=== PATIENT | male | born 1955 | race Caucasian/White ===

== ENCOUNTER 2017-12-16 18:12 | Inpatient (IN) | payer MEDICARE, OTHER ==
[~2017-12-16] VITALS: Ht 180.3 cm; Wt 104.0 kg
[~2017-12-16 18:12] MED LIST: AMLO10TA4 PO; ASPI-1265 PO; ATOR20TA66 PO; LISI-604 PO; etomidate 2mg/ml inj. ONE; rocuronium 10mg/ml inj IV ONE; sodium chloride 0.9% 10ml vial - diluent IJ ONE
[2017-12-16] MEDS ORDERED: normal saline 1000ML IV soln IVB ONE ×2 (18:40→20:25)
[2017-12-16 18:48] LABS: BASOPHILS % (AUTO) 0 % (0-1); EOSINOPHILS % (AUTO) 0 % (0-6); HEMATOCRIT 53.1 % (42.0-52.0); HEMOGLOBIN 17.9 g/dl (14.0-17.9); LYMPHOCYTES % (AUTO) 4.3 % (21-51); MEAN CORPUSCULAR HEMOGLOBIN 29.1 PG (27.0-31.0); MEAN CORPUSCULAR HGB CONC 33.6 % (33.0-36.5); MEAN CORPUSCULAR VOLUME 86.7 FL (78-98); MEAN PLATELET VOLUME 8.1 FL (7.4-10.4); MONOCYTES # (AUTO) 0.5 X10'3 (0-0.9); MONOCYTES % (AUTO) 2.2 % (2-12); NEUTROPHILS # (AUTO) 21.1 X10'3 (1.8-7.7); NEUTROPHILS % (AUTO) 93.5 % (42-75); PLATELET COUNT 340 X10'3 (140-440); RED BLOOD COUNT 6.13 X10'6 (4.70-6.10); WHITE BLOOD COUNT 22.5 X10'3 (4.5-11.0)
[2017-12-16] MEDS ORDERED: CefTRIAXone 2gm/D5W 50ml 50 ML IV ONE (18:50)
[2017-12-16] MEDS ORDERED: CefTRIAXone inj 2,000 MG in normal saline 100ml IV soln 100 ML IV ONE (18:55)
[2017-12-16 19:00] LABS: INR 1.1 INR; PARTIAL THROMBOPLASTIN TIME 31 SECONDS (22-32)
[2017-12-16 19:13] LABS: ALANINE AMINOTRANSFERASE 25 U/L (12-78); ALBUMIN 3.4 G/DL (3.4-5.0); ALBUMIN/GLOBULIN RATIO 0.7 (1.1-1.5); ALKALINE PHOSPHATASE 152 IU/L (46-116); ANION GAP 20 (8-16); ASPARTATE AMINO TRANSFERASE 19 U/L (10-37); BILIRUBIN,TOTAL 0.6 MG/DL (0.1-1.0); BLOOD UREA NITROGEN 13 MG/DL (7-18); BUN/CREATININE RATIO 8.7 (5.4-32.0); CHLORIDE 92 MMOL/L (99-107); CREATININE 1.49 MG/DL (0.60-1.10); ETHANOL < 0.010 GM/DL (0.0-0.010); MAGNESIUM 2.2 MG/DL (1.5-2.4); PHOSPHORUS 5.9 MG/DL (2.3-4.5); POTASSIUM 3.8 MMOL/L (3.5-5.1); SODIUM 132 MMOL/L (135-145); TOTAL CARBON DIOXIDE 20.3 MMOL/L (24-32); TOTAL PROTEIN 8.6 G/DL (6.4-8.2); eGFR 47 ML/MIN
[2017-12-16 19:18] LABS: GLUCOSE 302 MG/DL (70-104)
[2017-12-16 19:25] LABS: CLARITY,URINE CLOUDY (Clear); COLOR,URINE YELLOW (Yellow); GLUCOSE, URINE 100 mg/dl (Neg); KETONES,URINE NEGATIVE (Neg); LEUKOCYTE ESTERASE ,URINE NEGATIVE (Neg); NITRITES, URINE NEGATIVE (Neg); OCCULT BLOOD,URINE MODERATE (Neg); PH,URINE 6.5 (4.8-8.0); PROTEIN,URINE >=300 mg/dl (Neg)
[2017-12-16 19:32] LABS: URINE AMPHETAMINE SCREEN NEGATIVE (Neg); URINE BARBITUATE SCREEN NEGATIVE (Neg); URINE BENZODIAZEPINES SCREEN NEGATIVE (Neg); URINE CANNABINOID SCREEN NEGATIVE (Neg); URINE COCAINE SCREEN NEGATIVE (Neg); URINE METHADONE SCREEN NEGATIVE (Neg); URINE OPIATE SCREEN NEGATIVE (Neg); URINE PHENCYCLIDINE SCREEN NEGATIVE (Neg)
[2017-12-16 19:36] LABS: UA COLLECTION TYPE FOLEY CATH
[2017-12-16 19:38] LABS: BACTERIA,URINE FEW /HPF (Neg); SPERM MANY /HPF (NEGATIVE); SQUAMOUS EPITHELIAL CELL,UR FEW /LPF (FEW); WBC,URINE 0-4 /HPF (0-4)
[2017-12-16] MEDS ORDERED: LORazepam 2 mg/ml vial IV ONE ×2 (20:10→22:20)
[2017-12-16 20:48] LABS: TOTAL CELLS COUNTED 100
[2017-12-16 20:49] LABS: PLATELET ESTIMATE NORMAL
[2017-12-16] MEDS ORDERED: FURO-150 PO (21:15)
[2017-12-16] MEDS ORDERED: LORazepam 2 mg/ml vial ONE (22:21)
[2017-12-16] MEDS ORDERED: magnesium hydroxide 30ml (MOM) UD suspension PO PRN (22:25)
[2017-12-16] MEDS ORDERED: potassium Cl 40MEQ/NS 500ml 500 ML IV PRN (22:25)
[2017-12-16] MEDS ORDERED: potassium Cl 20 mEq SR tablet PO PRN ×2 (22:25)
[2017-12-16] MEDS ORDERED: acetaminophen 325mg tablet PO PRN ×2 (22:25)
[2017-12-16] MEDS ORDERED: morphine 4 MG/ML inj SYRINge IV PRN ×2 (22:25)
[2017-12-16] MEDS ORDERED: ondansetron/PF 4mg/2ml inj IV PRN (22:25)
[2017-12-16] MEDS ORDERED: levetiracetam inj 1,500 MG in normal saline 100ml IV soln 100 ML IV ONE (22:30)
[2017-12-16] MEDS ORDERED: vancomycin/NS 1 GM ADD-VANTAGE 250 ML IV ONE (22:35)
[2017-12-16] MEDS ORDERED: levetiracetam 100mg/ml inj IV ONE (22:37)
[2017-12-16] MEDS ORDERED: NORMAL SALINE ONE (22:38)
[2017-12-16] MEDS: normal saline 1000ml 1,000 ML IV SCH (22:51)
[2017-12-16] MEDS: piperacillin/tazo 3.375gm/50ml 50 ML IV SCH (23:06)
[2017-12-16] MEDS: K, MAG and/or Phos replacement - Verify level? MC SCH (23:08)
[2017-12-17] VITALS (23 sets, daily range): BP systolic 81–172; BP diastolic 49–92
[2017-12-17 00:46] LABS: ABG HCO3 23.5 mmol/L (22.0-26.0); ABG OXYGEN SATURATION 86.1 % (95-98); ABG PCO2 (T) 72.7 mmHg (35.0-48.0); ABG PH (T) 7.135 (7.350-7.450); ABG PO2 (T) 67.6 mmHg (83-108); ALLEN'S TEST Positive; FCOHb 0.3 % (0.5-1.5); FMetHb 0.4 % (0.3-1.12); FO2Hb 85.5 % (94-100); MINUTE VOLUME 9 L/min; PATIENT TEMPERATURE 38.2; PEEP 5 cm H2O; RESPIRATORY RATE 18 b/min; RESPIRATORY RATE (OBSERVED) 21 b/min; TIDAL VOLUME 400 mL; TOTAL HEMOGLOBIN 16.7 G/dl (14.0-18.0)
[2017-12-17] MEDS: FENTANYL-0.9 % NACL/PF 100 ML IV PRN (02:08)
[2017-12-17 03:16] LABS: ABG BASE EXCESS -4.5 mmol/L (-2.0-3.0); ABG HCO3 21.7 mmol/L (22.0-26.0); ABG OXYGEN SATURATION 95.5 % (95-98); ABG PCO2 (T) 48.2 mmHg (35.0-48.0); ABG PH (T) 7.281 (7.350-7.450); ABG PO2 (T) 93.7 mmHg (83-108); ALLEN'S TEST Positive; FCOHb 0.1 % (0.5-1.5); FMetHb 0.2 % (0.3-1.12); FO2Hb 95.2 % (94-100); MINUTE VOLUME 11 L/min; PEEP 5 cm H2O; RESPIRATORY RATE 18 b/min; RESPIRATORY RATE (OBSERVED) 18 b/min; TIDAL VOLUME 550 mL; TOTAL HEMOGLOBIN 15.3 G/dl (14.0-18.0)
[2017-12-17 03:29] LABS: BASOPHILS # (AUTO) 0.1 X10'3 (0-0.2); BASOPHILS % (AUTO) 0.3 % (0-1); EOSINOPHILS % (AUTO) 0 % (0-6); HEMATOCRIT 48.5 % (42.0-52.0); HEMOGLOBIN 16.2 g/dl (14.0-17.9); LYMPHOCYTES # (AUTO) 0.3 X10'3 (1.1-4.8); LYMPHOCYTES % (AUTO) 1.7 % (21-51); MEAN CORPUSCULAR HEMOGLOBIN 29.3 PG (27.0-31.0); MEAN CORPUSCULAR HGB CONC 33.5 % (33.0-36.5); MEAN CORPUSCULAR VOLUME 87.3 FL (78-98); MONOCYTES # (AUTO) 0.8 X10'3 (0-0.9); MONOCYTES % (AUTO) 4.1 % (2-12); NEUTROPHILS # (AUTO) 18.2 X10'3 (1.8-7.7); NEUTROPHILS % (AUTO) 93.9 % (42-75); PLATELET COUNT 283 X10'3 (140-440); RED BLOOD COUNT 5.55 X10'6 (4.70-6.10); WHITE BLOOD COUNT 19.4 X10'3 (4.5-11.0)
[2017-12-17 03:52] LABS: ALANINE AMINOTRANSFERASE 18 U/L (12-78); ALBUMIN 2.8 G/DL (3.4-5.0); ALBUMIN/GLOBULIN RATIO 0.6 (1.1-1.5); ALKALINE PHOSPHATASE 121 IU/L (46-116); ANION GAP 11 (8-16); ASPARTATE AMINO TRANSFERASE 23 U/L (10-37); BILIRUBIN,TOTAL 0.5 MG/DL (0.1-1.0); BLOOD UREA NITROGEN 11 MG/DL (7-18); BUN/CREATININE RATIO 8.3 (5.4-32.0); CHLORIDE 101 MMOL/L (99-107); CREATININE 1.32 MG/DL (0.60-1.10); POTASSIUM 4.3 MMOL/L (3.5-5.1); SODIUM 137 MMOL/L (135-145); TOTAL CARBON DIOXIDE 25.4 MMOL/L (24-32); TOTAL PROTEIN 7.2 G/DL (6.4-8.2); eGFR 55 ML/MIN
[2017-12-17 03:58] LABS: GLUCOSE 112 MG/DL (70-104)
[2017-12-17 04:48] LABS: PLATELET ESTIMATE NORMAL; TOTAL CELLS COUNTED 100
[2017-12-17] MEDS: piperacillin/tazo 3.375gm/50ml 50 ML IV SCH ×4 (05:49→22:54)
[2017-12-17] MEDS ORDERED: levetiracetam inj 1,500 MG in normal saline 100ml IV soln 85 ML IV SCH (08:00)
[2017-12-17] MEDS ORDERED: propofol 1000mg/100ml bottle 100 ML IV PRN (09:13)
[2017-12-17] MEDS: K, MAG and/or Phos replacement - Verify level? MC SCH (09:14)
[2017-12-17] MEDS: enoxaparin 40mg/0.4ml syringe SUBCUT SCH (09:18)
[2017-12-17] MEDS: pantoprazole 40 MG vial IV SCH (09:18)
[2017-12-17] MEDS: levetiracetam inj 1,500 MG in normal saline 100ml IV soln 85 ML IV SCH ×2 (09:18→20:20)
[2017-12-17] MEDS: lactobacillus rhamnosus 10,000 MMU CELLS/CAPSULE PO SCH ×2 (09:18→20:20)
[2017-12-17] MEDS: vancomycin/NS 1 GM ADD-VANTAGE 250 ML IV SCH ×3 (12:02→23:32)
[2017-12-17] MEDS: normal saline 1000ml 1,000 ML IV SCH (12:05)
[2017-12-17] MEDS ORDERED: midazolam 100mg in NS 100ml 100 ML IV PRN (13:57)
[2017-12-17] MEDS: midazolam 100mg in NS 100ml 100 ML IV PRN (14:34)
[2017-12-17] MEDS ORDERED: ziprasidone IM 20mg inj **IM only IM ONE (17:25)
[2017-12-17] MEDS ORDERED: NORepinephrine 8mg/ 250ml NS 250 ML IV ONE (19:54)
[2017-12-17] MEDS: NORepinephrine 8mg/ 250ml NS 250 ML IV SCH (20:12)
[2017-12-18] VITALS (23 sets, daily range): BP systolic 112–202; BP diastolic 58–108
[2017-12-18] MEDS: normal saline 1000ml 1,000 ML IV SCH ×2 (01:14→01:28)
[2017-12-18] MEDS: mineral oil/petrolatum ophthal oint EACHEYE SCH ×4 (01:31→19:50)
[2017-12-18 03:15] LABS: ABG BASE EXCESS -3.9 mmol/L (-2.0-3.0); ABG HCO3 19.7 mmol/L (22.0-26.0); ABG OXYGEN SATURATION 97.2 % (95-98); ABG PCO2 (T) 31.5 mmHg (35.0-48.0); ABG PH (T) 7.414 (7.350-7.450); ABG PO2 (T) 89.8 mmHg (83-108); ALLEN'S TEST Positive; FO2Hb 97.2 % (94-100); MINUTE VOLUME 12 L/min; PEEP 5 cm H2O; RESPIRATORY RATE 20 b/min; RESPIRATORY RATE (OBSERVED) 20 b/min; TIDAL VOLUME 550 mL; TOTAL HEMOGLOBIN 13.1 G/dl (14.0-18.0)
[2017-12-18 03:35] LABS: BASOPHILS # (AUTO) 0.1 X10'3 (0-0.2); EOSINOPHILS # (AUTO) 0.2 X10'3 (0-0.9); EOSINOPHILS % (AUTO) 1.2 % (0-6); HEMATOCRIT 35.4 % (42.0-52.0); HEMOGLOBIN 11.8 g/dl (14.0-17.9); LYMPHOCYTES # (AUTO) 1.1 X10'3 (1.1-4.8); LYMPHOCYTES % (AUTO) 7.4 % (21-51); MEAN CORPUSCULAR HEMOGLOBIN 29.2 PG (27.0-31.0); MEAN CORPUSCULAR HGB CONC 33.3 % (33.0-36.5); MEAN CORPUSCULAR VOLUME 87.8 FL (78-98); MEAN PLATELET VOLUME 9.2 FL (7.4-10.4); MONOCYTES # (AUTO) 1.1 X10'3 (0-0.9); MONOCYTES % (AUTO) 7.1 % (2-12); NEUTROPHILS % (AUTO) 83.3 % (42-75); PLATELET COUNT 240 X10'3 (140-440); RED BLOOD COUNT 4.03 X10'6 (4.70-6.10); RED CELL DISTRIBUTION WIDTH 15.5 % (11.5-14.5); WHITE BLOOD COUNT 15.6 X10'3 (4.5-11.0)
[2017-12-18 03:53] LABS: ALANINE AMINOTRANSFERASE 16 U/L (12-78); ALBUMIN 2.1 G/DL (3.4-5.0); ALBUMIN/GLOBULIN RATIO 0.6 (1.1-1.5); ALKALINE PHOSPHATASE 67 IU/L (46-116); ANION GAP 10 (8-16); ASPARTATE AMINO TRANSFERASE 16 U/L (10-37); BILIRUBIN,TOTAL 0.5 MG/DL (0.1-1.0); BLOOD UREA NITROGEN 14 MG/DL (7-18); BUN/CREATININE RATIO 10.1 (5.4-32.0); CALCIUM 7.7 MG/DL (8.5-10.1); CHLORIDE 109 MMOL/L (99-107); CREATININE 1.38 MG/DL (0.60-1.10); POTASSIUM 3.5 MMOL/L (3.5-5.1); SODIUM 141 MMOL/L (135-145); TOTAL CARBON DIOXIDE 21.6 MMOL/L (24-32); TOTAL PROTEIN 5.5 G/DL (6.4-8.2); eGFR 52 ML/MIN
[2017-12-18 03:56] LABS: GLUCOSE 90 MG/DL (70-104)
[2017-12-18] MEDS: piperacillin/tazo 3.375gm/50ml 50 ML IV SCH ×2 (04:40→11:00)
[2017-12-18] MEDS: enoxaparin 40mg/0.4ml syringe SUBCUT SCH (08:06)
[2017-12-18] MEDS: lactobacillus rhamnosus 10,000 MMU CELLS/CAPSULE PO SCH ×2 (08:06→19:33)
[2017-12-18] MEDS: pantoprazole 40 MG vial IV SCH (08:06)
[2017-12-18] MEDS: levetiracetam inj 1,500 MG in normal saline 100ml IV soln 85 ML IV SCH ×2 (08:06→19:34)
[2017-12-18] MEDS: K, MAG and/or Phos replacement - Verify level? MC SCH (08:07)
[2017-12-18] MEDS ORDERED: VANCOMYCIN LEVEL IV ONE (10:30)
[2017-12-18] MEDS: midazolam 100mg in NS 100ml 100 ML IV PRN ×2 (11:12→23:51)
[2017-12-18] MEDS: vancomycin/NS 1 GM ADD-VANTAGE 250 ML IV SCH ×2 (12:40→23:43)
[2017-12-18] MEDS: FENTANYL-0.9 % NACL/PF 100 ML IV PRN ×2 (15:10→23:52)
[2017-12-18] MEDS: furosemide 20 MG/2 ML vial IV SCH ×2 (15:56→23:47)
[2017-12-18] MEDS: hydrALAZINE 20mg/ml inj. IV PRN (19:19)
[2017-12-18] MEDS: lisinopril 5mg tablet PO SCH (19:33)
[2017-12-18] MEDS: amLODIPine 5mg tablet PO SCH (19:33)
[2017-12-18] MEDS: cefepime inj. 1 GM in dextrose 5%-water 50ml 50 ML IV SCH (19:34)
[2017-12-19] VITALS (24 sets, daily range): BP systolic 87–176; BP diastolic 51–98
[2017-12-19] MEDS: mineral oil/petrolatum ophthal oint EACHEYE SCH ×4 (02:17→19:38)
[2017-12-19 03:11] LABS: ABG HCO3 15.6 mmol/L (22.0-26.0); ABG OXYGEN SATURATION 92.6 % (95-98); ABG PCO2 (T) 28.3 mmHg (35.0-48.0); ABG PO2 (T) 68.2 mmHg (83-108); ALLEN'S TEST Positive; FCOHb 0.2 % (0.5-1.5); FMetHb 0.2 % (0.3-1.12); FO2Hb 92.2 % (94-100); MINUTE VOLUME 12 L/min; PATIENT TEMPERATURE 37.6; PEEP 5 cm H2O; RESPIRATORY RATE 20 b/min; RESPIRATORY RATE (OBSERVED) 20 b/min; TIDAL VOLUME 550 mL; TOTAL HEMOGLOBIN 15.2 G/dl (14.0-18.0)
[2017-12-19 03:19] LABS: BASOPHILS # (AUTO) 0.1 X10'3 (0-0.2); BASOPHILS % (AUTO) 0.3 % (0-1); EOSINOPHILS % (AUTO) 0.2 % (0-6); HEMATOCRIT 41.5 % (42.0-52.0); LYMPHOCYTES # (AUTO) 0.6 X10'3 (1.1-4.8); LYMPHOCYTES % (AUTO) 2.9 % (21-51); MEAN CORPUSCULAR HEMOGLOBIN 29.1 PG (27.0-31.0); MEAN CORPUSCULAR HGB CONC 33.8 % (33.0-36.5); MEAN CORPUSCULAR VOLUME 86.2 FL (78-98); MEAN PLATELET VOLUME 8.9 FL (7.4-10.4); MONOCYTES # (AUTO) 1.2 X10'3 (0-0.9); MONOCYTES % (AUTO) 5.8 % (2-12); NEUTROPHILS # (AUTO) 18.4 X10'3 (1.8-7.7); NEUTROPHILS % (AUTO) 90.8 % (42-75); PLATELET COUNT 277 X10'3 (140-440); RED BLOOD COUNT 4.82 X10'6 (4.70-6.10); RED CELL DISTRIBUTION WIDTH 15.4 % (11.5-14.5); WHITE BLOOD COUNT 20.3 X10'3 (4.5-11.0)
[2017-12-19 03:38] LABS: ALANINE AMINOTRANSFERASE 18 U/L (12-78); ALBUMIN 2.3 G/DL (3.4-5.0); ALBUMIN/GLOBULIN RATIO 0.5 (1.1-1.5); ALKALINE PHOSPHATASE 73 IU/L (46-116); ANION GAP 16 (8-16); ASPARTATE AMINO TRANSFERASE 23 U/L (10-37); BILIRUBIN,TOTAL 0.6 MG/DL (0.1-1.0); BLOOD UREA NITROGEN 17 MG/DL (7-18); BUN/CREATININE RATIO 8.6 (5.4-32.0); CALCIUM 8.1 MG/DL (8.5-10.1); CHLORIDE 107 MMOL/L (99-107); CREATININE 1.98 MG/DL (0.60-1.10); POTASSIUM 3.5 MMOL/L (3.5-5.1); SODIUM 141 MMOL/L (135-145); TOTAL CARBON DIOXIDE 17.6 MMOL/L (24-32); TOTAL PROTEIN 6.5 G/DL (6.4-8.2); eGFR 34 ML/MIN
[2017-12-19 03:45] LABS: GLUCOSE 64 MG/DL (70-104)
[2017-12-19] MEDS ORDERED: dextrose ORAL solution 15 GM/59 ML bottle PO PRN ×2 (03:55)
[2017-12-19] MEDS ORDERED: dextrose 50%-water 50ml dispensing syringe IV PRN ×2 (03:55)
[2017-12-19] MEDS: midazolam 100mg in NS 100ml 100 ML IV PRN (07:04)
[2017-12-19] MEDS: K, MAG and/or Phos replacement - Verify level? MC SCH (08:00)
[2017-12-19] MEDS: amLODIPine 5mg tablet PO SCH (08:23)
[2017-12-19] MEDS: lisinopril 5mg tablet PO SCH (08:23)
[2017-12-19] MEDS: lactobacillus rhamnosus 10,000 MMU CELLS/CAPSULE PO SCH ×2 (08:23→19:36)
[2017-12-19] MEDS: furosemide 20 MG/2 ML vial IV SCH ×2 (08:24→17:07)
[2017-12-19] MEDS: pantoprazole 40 MG vial IV SCH (08:24)
[2017-12-19] MEDS: levetiracetam inj 1,500 MG in normal saline 100ml IV soln 85 ML IV SCH ×2 (08:24→19:36)
[2017-12-19] MEDS: enoxaparin 40mg/0.4ml syringe SUBCUT SCH (08:24)
[2017-12-19] MEDS ORDERED: furosemide 40mg/4ml inj IV ONE (09:00)
[2017-12-19] MEDS ORDERED: FOSphenytoin 100mg/2ml inj IV ONE (09:10)
[2017-12-19] MEDS: cefepime inj. 1 GM in dextrose 5%-water 50ml 50 ML IV SCH ×2 (09:11→19:38)
[2017-12-19] MEDS ORDERED: FOSphenytoin 500mg inj. 1,000 MG in normal saline 100ml IV soln 80 ML IV ONE (09:15)
[2017-12-19] MEDS ORDERED: fentaNYL/PF 50MCG/1 ML 2ML syringe IV PRN (10:05)
[2017-12-19] MEDS ORDERED: MIDAZolam 5mg/ml 2ml vial IV PRN (10:05)
[2017-12-19] MEDS ORDERED: VANCOMYCIN LEVEL IV ONE (10:30)
[2017-12-19] MEDS: vancomycin/NS 1 GM ADD-VANTAGE 250 ML IV SCH ×2 (11:00→23:12)
[2017-12-19] MEDS: sodium bicarbonate (8.4%) inj. 150 MEQ in dextrose 5%-water 1,000 ML IV SCH (11:05)
[2017-12-19] MEDS: phenytoin 100mg/4ml ***ORAL SUSPENSION PO SCH ×2 (14:04→22:04)
[2017-12-19] MEDS: folic acid 1mg tablet PO SCH (14:07)
[2017-12-19] MEDS: multivitamin oral liquid (Certavite) 5ml cup PO SCH (14:07)
[2017-12-19] MEDS: thiamine 100mg tablet PO SCH (14:07)
[2017-12-19] MEDS: hydrALAZINE 20mg/ml inj. IV PRN (18:40)
[2017-12-19] MEDS: furosemide 40mg/4ml inj IV SCH (19:38)
[2017-12-20] VITALS (24 sets, daily range): BP systolic 54–161; BP diastolic 45–92
[2017-12-20] MEDS: NORepinephrine 8mg/ 250ml NS 250 ML IV SCH (02:16)
[2017-12-20] MEDS: mineral oil/petrolatum ophthal oint EACHEYE SCH ×4 (02:18→21:08)
[2017-12-20] MEDS ORDERED: albumin (Human) 5% 250 ML IV solution IV STA (02:22)
[2017-12-20 02:48] LABS: BASOPHILS # (AUTO) 0.1 X10'3 (0-0.2); BASOPHILS % (AUTO) 0.4 % (0-1); EOSINOPHILS # (AUTO) 0.1 X10'3 (0-0.9); EOSINOPHILS % (AUTO) 0.6 % (0-6); HEMATOCRIT 38.3 % (42.0-52.0); HEMOGLOBIN 13.2 g/dl (14.0-17.9); LYMPHOCYTES # (AUTO) 0.9 X10'3 (1.1-4.8); LYMPHOCYTES % (AUTO) 4.8 % (21-51); MEAN CORPUSCULAR HEMOGLOBIN 29.9 PG (27.0-31.0); MEAN CORPUSCULAR HGB CONC 34.5 % (33.0-36.5); MEAN CORPUSCULAR VOLUME 86.6 FL (78-98); MEAN PLATELET VOLUME 8.7 FL (7.4-10.4); MONOCYTES # (AUTO) 1.7 X10'3 (0-0.9); MONOCYTES % (AUTO) 8.9 % (2-12); NEUTROPHILS # (AUTO) 15.8 X10'3 (1.8-7.7); NEUTROPHILS % (AUTO) 85.3 % (42-75); PLATELET COUNT 288 X10'3 (140-440); RED BLOOD COUNT 4.42 X10'6 (4.70-6.10); RED CELL DISTRIBUTION WIDTH 15.3 % (11.5-14.5); WHITE BLOOD COUNT 18.6 X10'3 (4.5-11.0)
[2017-12-20 02:54] LABS: ALANINE AMINOTRANSFERASE 13 U/L (12-78); ALBUMIN 1.8 G/DL (3.4-5.0); ALBUMIN/GLOBULIN RATIO 0.4 (1.1-1.5); ALKALINE PHOSPHATASE 58 IU/L (46-116); ANION GAP 11 (8-16); ASPARTATE AMINO TRANSFERASE 16 U/L (10-37); BILIRUBIN,TOTAL 0.7 MG/DL (0.1-1.0); BLOOD UREA NITROGEN 30 MG/DL (7-18); BUN/CREATININE RATIO 9.6 (5.4-32.0); CALCIUM 8.2 MG/DL (8.5-10.1); CHLORIDE 107 MMOL/L (99-107); CREATININE 3.13 MG/DL (0.60-1.10); PHENYTOIN (DILANTIN) 8.2 UG/ML (10.0-20.0); SODIUM 140 MMOL/L (135-145); TOTAL CARBON DIOXIDE 22.1 MMOL/L (24-32); TOTAL PROTEIN 6.1 G/DL (6.4-8.2); eGFR 20 ML/MIN
[2017-12-20 02:55] LABS: GLUCOSE 147 MG/DL (70-104)
[2017-12-20 03:07] LABS: POTASSIUM 2.9 MMOL/L (3.5-5.1)
[2017-12-20] MEDS ORDERED: potassium Cl 40MEQ/250ML bag 250 ML IV ONE (03:57)
[2017-12-20 04:25] LABS: ABG BASE EXCESS -1.1 mmol/L (-2.0-3.0); ABG HCO3 21.6 mmol/L (22.0-26.0); ABG OXYGEN SATURATION 94.4 % (95-98); ABG PCO2 (T) 31.4 mmHg (35.0-48.0); ABG PH (T) 7.457 (7.350-7.450); ABG PO2 (T) 70.8 mmHg (83-108); ALLEN'S TEST Positive; FCOHb 1.1 % (0.5-1.5); FMetHb 0.2 % (0.3-1.12); FO2Hb 93.2 % (94-100); MINUTE VOLUME 12 L/min; PATIENT TEMPERATURE 37.7; PEEP 5 cm H2O; RESPIRATORY RATE 20 b/min; RESPIRATORY RATE (OBSERVED) 20 b/min; TIDAL VOLUME 550 mL; TOTAL HEMOGLOBIN 13.3 G/dl (14.0-18.0)
[2017-12-20] MEDS: sodium bicarbonate (8.4%) inj. 150 MEQ in dextrose 5%-water 1,000 ML IV SCH (05:15)
[2017-12-20] MEDS: amLODIPine 5mg tablet PO SCH (08:00)
[2017-12-20] MEDS: furosemide 40mg/4ml inj IV SCH ×2 (08:00→20:00)
[2017-12-20] MEDS: lisinopril 5mg tablet PO SCH (08:00)
[2017-12-20] MEDS: K, MAG and/or Phos replacement - Verify level? MC SCH (08:00)
[2017-12-20] MEDS: furosemide 20 MG/2 ML vial IV SCH ×3 (08:00→16:00)
[2017-12-20] MEDS ORDERED: vancomycin/NS 1 GM ADD-VANTAGE 250 ML IV PRN (08:05)
[2017-12-20] MEDS: thiamine 100mg tablet PO SCH (08:11)
[2017-12-20] MEDS: lactobacillus rhamnosus 10,000 MMU CELLS/CAPSULE PO SCH ×2 (08:12→21:07)
[2017-12-20] MEDS: enoxaparin 40mg/0.4ml syringe SUBCUT SCH (08:12)
[2017-12-20] MEDS: folic acid 1mg tablet PO SCH (08:12)
[2017-12-20] MEDS: multivitamin oral liquid (Certavite) 5ml cup PO SCH (08:12)
[2017-12-20] MEDS: pantoprazole 40 MG vial IV SCH (08:13)
[2017-12-20] MEDS: levetiracetam inj 1,500 MG in normal saline 100ml IV soln 85 ML IV SCH ×2 (08:13→21:08)
[2017-12-20] MEDS: cefepime inj. 1 GM in dextrose 5%-water 50ml 50 ML IV SCH ×2 (08:48→21:06)
[2017-12-20 08:49] LABS: VANCOMYCIN,RANDOM 39.1 UG/ML
[2017-12-20] MEDS: phenytoin 100mg/4ml ***ORAL SUSPENSION PO SCH ×3 (09:12→21:07)
[2017-12-20 11:59] LABS: CLARITY,URINE CLOUDY (Clear); COLOR,URINE YELLOW (Yellow); GLUCOSE, URINE NEGATIVE (Neg); KETONES,URINE NEGATIVE (Neg); LEUKOCYTE ESTERASE ,URINE SMALL (Neg); NITRITES, URINE NEGATIVE (Neg); OCCULT BLOOD,URINE LARGE (Neg); PROTEIN,URINE 30 mg/dl (Neg); UROBILINOGEN,URINE 0.2 E.U/dL (0.2-1.0)
[2017-12-20 12:01] LABS: ALANINE AMINOTRANSFERASE 13 U/L (12-78); ALBUMIN 2.2 G/DL (3.4-5.0); ALBUMIN/GLOBULIN RATIO 0.6 (1.1-1.5); ALKALINE PHOSPHATASE 54 IU/L (46-116); ANION GAP 12 (8-16); ASPARTATE AMINO TRANSFERASE 17 U/L (10-37); BILIRUBIN,TOTAL 0.5 MG/DL (0.1-1.0); BLOOD UREA NITROGEN 28 MG/DL (7-18); BUN/CREATININE RATIO 11.9 (5.4-32.0); CALCIUM 8.6 MG/DL (8.5-10.1); CHLORIDE 107 MMOL/L (99-107); CREATININE 2.36 MG/DL (0.60-1.10); SODIUM 143 MMOL/L (135-145); TOTAL CARBON DIOXIDE 24.5 MMOL/L (24-32); eGFR 28 ML/MIN
[2017-12-20 12:02] LABS: UA COLLECTION TYPE FOLEY CATH
[2017-12-20 12:04] LABS: GLUCOSE 120 MG/DL (70-104)
[2017-12-20 12:05] LABS: BACTERIA,URINE 2+ /HPF (Neg); RBC,URINE TNTC /HPF (0-2); WBC,URINE 50-100 /HPF (0-4)
[2017-12-20 12:06] LABS: MUCUS STRANDS FEW /LPF (Neg); SQUAMOUS EPITHELIAL CELL,UR FEW /LPF (FEW); URIC ACID CRYSTALS 2+ /HPF (NEGATIVE)
[2017-12-20 12:13] LABS: POTASSIUM 2.9 MMOL/L (3.5-5.1)
[2017-12-20 12:57] LABS: UA EOSINOPHILS NO EOS /HPF
[2017-12-20] MEDS: midazolam 100mg in NS 100ml 100 ML IV PRN ×2 (13:08→22:19)
[2017-12-20] MEDS: potassium Cl 40MEQ/NS 500ml 500 ML IV PRN ×2 (14:48→22:47)
[2017-12-21] VITALS (29 sets, daily range): BP systolic 68–148; BP diastolic 51–87
[2017-12-21] MEDS: sodium bicarbonate (8.4%) inj. 150 MEQ in dextrose 5%-water 1,000 ML IV SCH (00:44)
[2017-12-21] MEDS ORDERED: VANCOMYCIN LEVEL IV SCH (03:00)
[2017-12-21 03:09] LABS: ALANINE AMINOTRANSFERASE 18 U/L (12-78); ALBUMIN 2.1 G/DL (3.4-5.0); ALBUMIN/GLOBULIN RATIO 0.6 (1.1-1.5); ALKALINE PHOSPHATASE 46 IU/L (46-116); ANION GAP 8 (8-16); ASPARTATE AMINO TRANSFERASE 19 U/L (10-37); BILIRUBIN,TOTAL 0.5 MG/DL (0.1-1.0); BLOOD UREA NITROGEN 26 MG/DL (7-18); BUN/CREATININE RATIO 14.9 (5.4-32.0); CALCIUM 8.6 MG/DL (8.5-10.1); CHLORIDE 109 MMOL/L (99-107); CREATININE 1.75 MG/DL (0.60-1.10); SODIUM 146 MMOL/L (135-145); TOTAL CARBON DIOXIDE 28.8 MMOL/L (24-32); TOTAL PROTEIN 5.9 G/DL (6.4-8.2); eGFR 39 ML/MIN
[2017-12-21 03:11] LABS: BASOPHILS # (AUTO) 0.1 X10'3 (0-0.2); BASOPHILS % (AUTO) 0.5 % (0-1); EOSINOPHILS # (AUTO) 0.7 X10'3 (0-0.9); HEMATOCRIT 34.2 % (42.0-52.0); HEMOGLOBIN 11.6 g/dl (14.0-17.9); LYMPHOCYTES # (AUTO) 1.3 X10'3 (1.1-4.8); LYMPHOCYTES % (AUTO) 9.5 % (21-51); MEAN CORPUSCULAR HEMOGLOBIN 29.4 PG (27.0-31.0); MEAN CORPUSCULAR HGB CONC 33.8 % (33.0-36.5); MEAN CORPUSCULAR VOLUME 86.9 FL (78-98); MEAN PLATELET VOLUME 8.9 FL (7.4-10.4); MONOCYTES # (AUTO) 1.1 X10'3 (0-0.9); MONOCYTES % (AUTO) 8.2 % (2-12); NEUTROPHILS # (AUTO) 10.3 X10'3 (1.8-7.7); NEUTROPHILS % (AUTO) 76.8 % (42-75); PLATELET COUNT 264 X10'3 (140-440); RED BLOOD COUNT 3.93 X10'6 (4.70-6.10); RED CELL DISTRIBUTION WIDTH 15.7 % (11.5-14.5); WHITE BLOOD COUNT 13.4 X10'3 (4.5-11.0)
[2017-12-21] MEDS: mineral oil/petrolatum ophthal oint EACHEYE SCH ×4 (03:18→20:12)
[2017-12-21 03:19] LABS: GLUCOSE 114 MG/DL (70-104); VANCOMYCIN,RANDOM 16.6 UG/ML
[2017-12-21 04:16] LABS: ABG BASE EXCESS 4.7 mmol/L (-2.0-3.0); ABG HCO3 27.6 mmol/L (22.0-26.0); ABG OXYGEN SATURATION 91.8 % (95-98); ABG PCO2 (T) 35.6 mmHg (35.0-48.0); ABG PH (T) 7.508 (7.350-7.450); ABG PO2 (T) 60.1 mmHg (83-108); ALLEN'S TEST Positive; FCOHb 0.3 % (0.5-1.5); FMetHb 0.1 % (0.3-1.12); FO2Hb 91.4 % (94-100); PATIENT TEMPERATURE 37.2; PEEP 5 cm H2O; RESPIRATORY RATE 18 b/min; TIDAL VOLUME 550 mL; TOTAL HEMOGLOBIN 12.8 G/dl (14.0-18.0)
[2017-12-21] MEDS: FENTANYL-0.9 % NACL/PF 100 ML IV PRN (05:22)
[2017-12-21] MEDS: multivitamin oral liquid (Certavite) 5ml cup PO SCH (07:36)
[2017-12-21] MEDS: lactobacillus rhamnosus 10,000 MMU CELLS/CAPSULE PO SCH ×2 (07:36→20:14)
[2017-12-21] MEDS: thiamine 100mg tablet PO SCH (07:36)
[2017-12-21] MEDS: folic acid 1mg tablet PO SCH (07:36)
[2017-12-21] MEDS: pantoprazole 40 MG vial IV SCH (07:37)
[2017-12-21] MEDS: levetiracetam inj 1,500 MG in normal saline 100ml IV soln 85 ML IV SCH ×2 (07:38→20:08)
[2017-12-21] MEDS: cefepime inj. 1 GM in dextrose 5%-water 50ml 50 ML IV SCH ×2 (07:38→20:17)
[2017-12-21] MEDS: lisinopril 5mg tablet PO SCH (08:00)
[2017-12-21] MEDS: amLODIPine 5mg tablet PO SCH (08:00)
[2017-12-21] MEDS: furosemide 40mg/4ml inj IV SCH ×2 (08:00→20:00)
[2017-12-21] MEDS ORDERED: enoxaparin 30mg/0.3ml syringe SUBCUT SCH (08:00)
[2017-12-21] MEDS: K, MAG and/or Phos replacement - Verify level? MC SCH (08:31)
[2017-12-21] MEDS: phenytoin 100mg/4ml ***ORAL SUSPENSION PO SCH ×3 (08:51→20:20)
[2017-12-21] MEDS ORDERED: vancomycin/NS 1 GM ADD-VANTAGE 250 ML IV ONE (09:00)
[2017-12-21] MEDS ORDERED: DEXMEDETOMIDINE 400MCG in NORMAL SALINE 100ml IV SCH (10:54)
[2017-12-21] MEDS ORDERED: phenytoin sod 50mg/ml 2ml vial IV ONE (11:40)
[2017-12-21] MEDS ORDERED: FOSPHENYTOIN IV ONE (12:00)
[2017-12-21] MEDS ORDERED: NORMAL SALINE IV ONE (12:00)
[2017-12-21] MEDS: MIDAZolam 5mg/ml 2ml vial IV PRN (15:45)
[2017-12-21] MEDS: potassium Cl 40MEQ/NS 500ml 500 ML IV PRN (16:09)
[2017-12-21] MEDS ORDERED: THI100T PO (17:48)
[2017-12-21] MEDS ORDERED: LACT1CAP26 PO (17:48)
[2017-12-21] MEDS ORDERED: [UNRECOGNIZED DRUG - CODE] IV (17:48)
[2017-12-21] MEDS ORDERED: PANT40VI2 IV (17:48)
[2017-12-21] MEDS ORDERED: LEVE1500 IV (17:48)
[2017-12-21] MEDS ORDERED: PHEN125O3 PO (17:48)
[2017-12-21] MEDS ORDERED: VANC1PLA9 IV (17:48)
[2017-12-21] MEDS ORDERED: FURO10VI51 IV (17:48)
[2017-12-21] MEDS ORDERED: ENOX30DI4 SUBCUT (17:48)
[2017-12-21] MEDS ORDERED: FOLI1TAB16 PO (17:48)
[2017-12-21] MEDS ORDERED: CEFE1FRO IV (17:48)
[2017-12-21] MEDS ORDERED: MULT9LIQ5 PO (17:48)
[2017-12-21] MEDS ORDERED: normal saline 1000ml 1,000 ML IV SCH (18:00)
[2017-12-21] MEDS ORDERED: ziprasidone IM 20mg inj **IM only IM ONE (20:00)
[2017-12-21] MEDS: NORepinephrine 8mg/ 250ml NS 250 ML IV SCH (21:02)
== END 2017-12-21 21:20 | disposition short-term general hospital (02) | DRG 870 ==
LOC: ER 18:12 → ED HOLD 22:24 → CICU 2S 12-17 01:20
PROVIDERS: ADMIT Internal Medicine Critical Care Medicine; ATTEND Internal Medicine Critical Care Medicine
PROC: 5A1955Z Respiratory Ventilation, Greater than 96 Consecutive Hours (ICD-10-PCS; principal; 2017-12-17)
PROC: 0BH17EZ Insertion of Endotracheal Airway into Trachea, Via Natural or Artificial Opening (ICD-10-PCS; 2017-12-17)
PROC: 06HM33Z Insertion of Infusion Device into Right Femoral Vein, Percutaneous Approach (ICD-10-PCS; 2017-12-17)
PROC: 02HV33Z Insertion of Infusion Device into Superior Vena Cava, Percutaneous Approach (ICD-10-PCS; 2017-12-20)
PROC: B548ZZA Ultrasonography of Superior Vena Cava, Guidance (ICD-10-PCS; 2017-12-20)
PROC: 4A10X4Z Monitoring of Central Nervous Electrical Activity, External Approach (ICD-10-PCS; 2017-12-20)
PROC: 5A09357 Assistance with Respiratory Ventilation, Less than 24 Consecutive Hours, Continuous Positive Airway Pressure (ICD-10-PCS; 2017-12-21)
DX: A41.9 Sepsis, unspecified organism (principal); J96.00 Acute respiratory failure, unspecified whether with hypoxia or hypercapnia; I63.9 Cerebral infarction, unspecified; R65.21 Severe sepsis with septic shock; J90 Pleural effusion, not elsewhere classified; N17.9 Acute kidney failure, unspecified; I69.351 Hemiplegia and hemiparesis following cerebral infarction affecting right dominant side; E87.1 Hypo-osmolality and hyponatremia; R56.9 Unspecified convulsions; R74.8 Abnormal levels of other serum enzymes; E87.70 Fluid overload, unspecified; J45.909 Unspecified asthma, uncomplicated; Z79.82 Long term (current) use of aspirin; Z79.899 Other long term (current) drug therapy
CPT/HCPCS: 36415; 36569; 36600; 70450; 70544; 70551; 71045; 74018; 76937; 80053; 80185; 80202; 80305; 80320; 81001; 82570; 82803; 82948; 83605; 83735; 84100; 84134; 84145; 84300; 84443; 84484; 85018; 85025; 85610; 85730; 87040; 87070; 87077; 87088; 87186; 87207; 93306; 93880; 94002; 94003; 94760; 95816; 96365; 96375; 96376; 97162; 99285; A4315; A6213; A6257; A6258; A6449; C1751; C1758; C9113; J0360; J0692; J0696; J1650; J1940; J1953; J2060; J2250; J2543; J2704; J3370; J3480; J3486; J3490; J7030; J7060; P9045; Q2009

== ENCOUNTER 2019-05-28 14:20 | Emergency (ER) | payer MEDICARE, OTHER ==
[~2019-05-28] VITALS: Ht 180.3 cm; Wt 68.2 kg
[~2019-05-28 14:20] MED LIST changes: -AMLO10TA4 PO; +ENOX30DI4 SUBCUT; +FOLI1TAB16 PO; +FURO10VI51 IV; +LACT1CAP26 PO; +LEVE1500 IV; -LISI-604 PO; +MULT9LIQ5 PO; +PANT40VI2 IV; +PHEN125O3 PO; +THI100T PO; +VANC1PLA9 IV; +[UNRECOGNIZED DRUG - CODE] IV; -etomidate 2mg/ml inj. ONE; -rocuronium 10mg/ml inj IV ONE; -sodium chloride 0.9% 10ml vial - diluent IJ ONE
[2019-05-28] MEDS ORDERED: phenobarbital inj 260 MG in normal saline 100ml IV soln 100 ML IV STA (14:44)
[2019-05-28] MEDS ORDERED: thiamine 100mg tablet PO ONE (14:45)
[2019-05-28] MEDS ORDERED: magnesium oxide 400mg tablet PO ONE (14:45)
[2019-05-28] MEDS ORDERED: ondansetron/PF 4mg/2ml inj IV ONE (14:45)
[2019-05-28] MEDS ORDERED: normal saline 1000ML IV soln IVB ONE (14:45)
[2019-05-28] MEDS ORDERED: levetiracetam-NS 1000mg/100ml 100 ML IV ONE (15:13)
[2019-05-28 15:29] LABS: URINE AMPHETAMINE SCREEN POSITIVE (Neg); URINE BARBITUATE SCREEN NEGATIVE (Neg); URINE BENZODIAZEPINES SCREEN NEGATIVE (Neg); URINE CANNABINOID SCREEN NEGATIVE (Neg); URINE COCAINE SCREEN NEGATIVE (Neg); URINE METHADONE SCREEN NEGATIVE (Neg); URINE OPIATE SCREEN NEGATIVE (Neg); URINE PHENCYCLIDINE SCREEN NEGATIVE (Neg)
[2019-05-28 15:29] LABS: BASOPHILS # (AUTO) 0.1 X10'3 (0-0.2); BASOPHILS % (AUTO) 0.7 % (0-1); EOSINOPHILS # (AUTO) 0.1 X10'3 (0-0.9); EOSINOPHILS % (AUTO) 1.1 % (0-6); HEMATOCRIT 47.7 % (42.0-52.0); HEMOGLOBIN 15.5 g/dl (14.0-17.9); LYMPHOCYTES # (AUTO) 0.9 X10'3 (1.1-4.8); LYMPHOCYTES % (AUTO) 7.9 % (21-51); MEAN CORPUSCULAR HEMOGLOBIN 25.3 PG (27.0-31.0); MEAN CORPUSCULAR HGB CONC 32.4 g/dL (33.0-36.5); MEAN CORPUSCULAR VOLUME 78.1 FL (78-98); MEAN PLATELET VOLUME 8.4 FL (7.4-10.4); MONOCYTES # (AUTO) 0.7 X10'3 (0-0.9); MONOCYTES % (AUTO) 6.6 % (2-12); NEUTROPHILS # (AUTO) 9.1 X10'3 (1.8-7.7); NEUTROPHILS % (AUTO) 83.7 % (42-75); PLATELET COUNT 301 X10'3 (140-440); RED BLOOD COUNT 6.11 X10'6 (4.70-6.10); RED CELL DISTRIBUTION WIDTH 19.5 % (11.5-14.5); WHITE BLOOD COUNT 10.9 X10'3 (4.5-11.0)
[2019-05-28 15:32] LABS: ALANINE AMINOTRANSFERASE 23 U/L (12-78); ALBUMIN 3.5 G/DL (3.4-5.0); ALBUMIN/GLOBULIN RATIO 0.7 (1.1-1.5); ALKALINE PHOSPHATASE 103 IU/L (46-116); ANION GAP 13 (8-16); ASPARTATE AMINO TRANSFERASE 17 U/L (10-37); BILIRUBIN,TOTAL 0.3 MG/DL (0.1-1.0); BLOOD UREA NITROGEN 11 MG/DL (7-18); BUN/CREATININE RATIO 10.9 (5.4-32.0); CALCIUM 9.7 MG/DL (8.5-10.1); CHLORIDE 102 MMOL/L (99-107); CREATININE 1.01 MG/DL (0.60-1.10); POTASSIUM 4.4 MMOL/L (3.5-5.1); SODIUM 138 MMOL/L (135-145); TOTAL PROTEIN 8.5 G/DL (6.4-8.2); eGFR 74 ML/MIN
[2019-05-28 15:42] LABS: ETHANOL < 0.010 GM/DL (0.0-0.010); MAGNESIUM 2.1 MG/DL (1.5-2.4)
[2019-05-28 15:58] LABS: GLUCOSE 99 MG/DL (70-104)
[2019-05-28 16:23] LABS: ANISOCYTOSIS 2+; HYPOCHROMASIA 1+; MICROCYTOSIS 1+; PLATELET ESTIMATE NORMAL; POLYCHROMASIA FEW
[2019-05-28] MEDS ORDERED: carVEDilol 3.125mg tablet PO SCH (16:35)
[2019-05-28] MEDS ORDERED: hydrALAZINE 20mg/ml inj. IV ONE (16:35)
[2019-05-28] MEDS ORDERED: LISI-600 PO (18:17)
[2019-05-28] MEDS ORDERED: BUSP10TA11 PO (18:17)
[2019-05-28] MEDS ORDERED: LEVE500T PO (18:17)
[2019-05-28] MEDS ORDERED: OMEP20TA23 PO (18:17)
[2019-05-28] MEDS ORDERED: POTA8CAP20 PO (18:17)
[2019-05-28] MEDS ORDERED: DICY10CA88 PO (18:17)
[2019-05-28] MEDS ORDERED: CARV3.12 PO (18:17)
[2019-05-28] MEDS ORDERED: FURO-150 PO (18:17)
[2019-05-28] MEDS ORDERED: FLO0.4C PO (18:17)
[2019-05-28] MEDS ORDERED: ATOR80TA PO (18:17)
[2019-05-28] MEDS ORDERED: DOCU-329 PO (18:17)
--- NOTE | 2019-05-28 19:00 | NUR ---
Upon assuming care of this patient he is mid fowlers in bed number 24, he is eating dinner. Patient is awake and well oriented. Patient states he came in today because he had a seizure. He has a saline lock in his left forarm. 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 Patient states he uses a wheelchair at home but it didn't come in with him today. Patient states he is an alcoholic, he drinks a pint of karla daily. Patient has not taken any home medications for about six months. Patient states his last drink was 1600 hours yesterday afternoon.
[2019-05-28] MEDS ORDERED: dicyclomine 10 MG capsule PO PRN (19:25)
[2019-05-28] MEDS ORDERED: docusate sod 250mg capsule PO PRN (19:25)
[2019-05-28] MEDS ORDERED: BUSPIRONE HCL PO SCH (19:35)
[2019-05-28] MEDS ORDERED: LEVETIRACETAM 500 MG PO SCH (19:40)
--- NOTE | 2019-05-28 19:50 | NUR ---
Patient is resting quietly. He is rolled to his left side for new positioning secondary to his right side being flacid. Patient is cooperative.
[2019-05-28] MEDS: carVEDilol 3.125mg tablet PO SCH (20:00)
[2019-05-28] MEDS ORDERED: LORazepam 1 MG tablet PO PRN (20:10)
[2019-05-28] MEDS ORDERED: busPIRone 5mg tablet PO SCH ×2 (20:29→21:30)
[2019-05-28] MEDS ORDERED: levetiracetam 250mg tablet PO SCH (20:32)
[2019-05-28] MEDS ORDERED: levetiracetam 250mg tablet PO ONE (21:30)
--- NOTE | 2019-05-28 21:30 | NUR ---
Patient moved to mid fowlers position.
[2019-05-28] MEDS: potassium chloride 8mEq ER tablet PO SCH (21:41)
--- NOTE | 2019-05-28 22:13 | NUR ---
Patient is sleeping now. Patient was given Ativan for anxiety. Patient is a chronic alcoholic and has not consumed alcohol yesterday or today.
--- NOTE | 2019-05-28 23:50 | NUR ---
Patient rolled to left side. He returns to sleep. No subjective complaints.
--- NOTE | 2019-05-29 00:40 | NUR ---
Patient placed supine in bed. He returns to sleep easily.
--- NOTE | 2019-05-29 01:45 | NUR ---
PT SLEEPING, LYING ON HIS BACK WITH BLANKETS COVERING TO HIS SHOULDERS. RR 16 AND UNLABORED. 250 CCS CLEAR YELLOW URINE EMPTIED FROM URINAL.
--- NOTE | 2019-05-29 03:28 | NUR ---
Patient is sleeping quietly, low fowlers in bed. In view from the nurses station.
--- NOTE | 2019-05-29 04:36 | NUR ---
This patient just awoke. He voided in bed while asleep. Patient is well oriented. Patient will be cleaned, rolled in bed, new bedding will be placed also. Patient is cooperative with staff.
--- NOTE | 2019-05-29 05:02 | NUR ---
Patient in low fowlers position. Discussion with Dr. Joel about this patients hospital stay on the Overflow unit. This patient denies S/I, H/I, hallucinations, etc. Patient believes he was kept secondary to having another CVA? Dr. Joel will review and advise.
--- NOTE | 2019-05-29 05:30 | NUR ---
Field start saline lock DC'd, catheter is intact.
--- NOTE | 2019-05-29 06:38 | NUR ---
pt resting quietly in bed.
[2019-05-29] MEDS ORDERED: pantoprazole 40mg Tablet.DR PO SCH (07:30)
[2019-05-29] MEDS ORDERED: rivaroxaban 20mg tablet PO SCH (07:30)
[2019-05-29] MEDS ORDERED: tamsulosin 0.4mg capsule PO SCH (08:00)
[2019-05-29] MEDS ORDERED: lisinopril 20mg tablet PO SCH (08:00)
[2019-05-29] MEDS ORDERED: atorvastatin 20mg tablet PO SCH (08:00)
[2019-05-29] MEDS ORDERED: furosemide 20MG tablet PO SCH (08:00)
--- NOTE | 2019-05-29 08:00 | NUR ---
pt resting quietly in bed
--- NOTE | 2019-05-29 09:35 | NUR ---
called pts [id number], Nati Elder, who the pt lives with. Nati states pt can come home with her and she can be here around 1pm to pick him up.
[2019-05-29] MEDS: carVEDilol 3.125mg tablet PO SCH (09:55)
[2019-05-29] MEDS: potassium chloride 8mEq ER tablet PO SCH (09:55)
--- NOTE | 2019-05-29 11:32 | NUR ---
pt sleeping in bed
[2019-05-29] MEDS ORDERED: lisinopril 10 MG tablet PO SCH (12:25)
[2019-05-29 12:26] VITALS: BP 99/62
[2019-05-29] MEDS ORDERED: LISI10TA4 PO (12:26)
--- NOTE | 2019-05-29 12:27 | NUR ---
BP at 0951 was 128/72, within the limits to give pts scheduled Lisinopril 100mg, the doseage listed on his [facility] med list. Med given. BP at 1225 was 99/62 while pt sleeping. Pharmacist came to bedside concerned about the large doseage of Lisinopril and questioning the home dose. Addendum: 05/29/19 at 1247 by [facility] pharmacist found corrected [employer] doseage of pts lisinopril and changed dose in med rec. Dr. Suh made aware of 100mg doseage this AM. states pt is stable for d/c.
== END 2019-05-29 14:28 | disposition home or self-care (01) ==
LOC: ER 14:21
DX: R56.9 Unspecified convulsions (principal); R62.7 Adult failure to thrive; F10.239 Alcohol dependence with withdrawal, unspecified; R00.0 Tachycardia, unspecified; J45.909 Unspecified asthma, uncomplicated; G81.90 Hemiplegia, unspecified affecting unspecified side; I10 Essential (primary) hypertension; F12.90 Cannabis use, unspecified, uncomplicated; F15.90 Other stimulant use, unspecified, uncomplicated; Z91.14 Patient's other noncompliance with medication regimen; Z79.899 Other long term (current) drug therapy; Z86.73 Personal history of transient ischemic attack (TIA), and cerebral infarction without residual deficits; Y90.9 Presence of alcohol in blood, level not specified
CPT/HCPCS: 36415; 70450; 80053; 80305; 80320; 82948; 83735; 84443; 85025; 93005; 96374; 96375; 99284; J0360; J1953; J2405; J2560; J7030

== ENCOUNTER 2020-04-19 23:59 | Emergency (ER) | payer MEDICARE ==
[~2020-04-19] VITALS: Ht 180.3 cm; Wt 61.4 kg
[~2020-04-19 23:59] MED LIST changes: -ASPI-1265 PO; -ATOR20TA66 PO; +ATOR80TA PO; +BUSP10TA11 PO; +CARV3.12 PO; +DICY10CA88 PO; +DOCU250C96 PO; -ENOX30DI4 SUBCUT; +FLO0.4C PO; -FOLI1TAB16 PO; +FURO-150 PO; -FURO10VI51 IV; -LACT1CAP26 PO; -LEVE1500 IV; +LEVE500T PO; +LISI10TA4 PO; -MULT9LIQ5 PO; +OMEP20TA23 PO; -PANT40VI2 IV; -PHEN125O3 PO; +POTA8CAP20 PO; -THI100T PO; -VANC1PLA9 IV; -[UNRECOGNIZED DRUG - CODE] IV
[2020-04-20 00:38] LABS: BASOPHILS # (AUTO) 0.1 X10'3 (0-0.2); BASOPHILS % (AUTO) 0.4 % (0-1); EOSINOPHILS # (AUTO) 0.1 X10'3 (0-0.9); EOSINOPHILS % (AUTO) 0.4 % (0-6); HEMATOCRIT 50.7 % (42.0-52.0); HEMOGLOBIN 16.8 g/dl (14.0-17.9); LYMPHOCYTES # (AUTO) 0.6 X10'3 (1.1-4.8); MEAN CORPUSCULAR HEMOGLOBIN 29.4 PG (27.0-31.0); MEAN CORPUSCULAR HGB CONC 33.1 g/dL (33.0-36.5); MEAN CORPUSCULAR VOLUME 88.8 FL (78-98); MONOCYTES % (AUTO) 6.8 % (2-12); NEUTROPHILS % (AUTO) 88.4 % (42-75); PLATELET COUNT 252 X10'3 (140-440); RED BLOOD COUNT 5.71 X10'6 (4.70-6.10); RED CELL DISTRIBUTION WIDTH 16.7 % (11.5-14.5); WHITE BLOOD COUNT 14.7 X10'3 (4.5-11.0)
--- NOTE | 2020-04-20 00:50 | NUR ---
ASSISTED PT TO BATHROOM FOR BM. REQUIRED 2 PERSON ASSIST WITH WHEELCHAIR DUE TO PT PREVIOUS RIGHT SIDED DEFICITS. PROVIDED [facility] AND PT ASSISTED BACK TO BED AND GIVEN BLANKETS.
[2020-04-20 00:53] LABS: ALANINE AMINOTRANSFERASE 19 U/L (12-78); ALBUMIN 3.3 G/DL (3.4-5.0); ALBUMIN/GLOBULIN RATIO 0.7 (1.1-1.5); ALKALINE PHOSPHATASE 118 IU/L (46-116); ANION GAP 13 (8-16); ASPARTATE AMINO TRANSFERASE 16 U/L (10-37); BILIRUBIN,TOTAL 0.6 MG/DL (0.1-1.0); BLOOD UREA NITROGEN 14 MG/DL (7-18); BUN/CREATININE RATIO 11.5 (5.4-32.0); CALCIUM 9.2 MG/DL (8.5-10.1); CHLORIDE 101 MMOL/L (99-107); CREATININE 1.22 MG/DL (0.60-1.10); POTASSIUM 3.9 MMOL/L (3.5-5.1); SODIUM 136 MMOL/L (135-145); TOTAL CARBON DIOXIDE 22.5 MMOL/L (24-32); TOTAL PROTEIN 7.8 G/DL (6.4-8.2); eGFR 59 ML/MIN
[2020-04-20 00:55] LABS: GLUCOSE 123 MG/DL (70-104)
--- NOTE | 2020-04-20 01:04 | NUR ---
attempted to obtain urine sample. pt unable to at this time. will continue to attempt sample collection and given urinal at bedside. pt aware.
[2020-04-20 02:56] LABS: CLARITY,URINE CLEAR (Clear); COLOR,URINE AMBER (Yellow); GLUCOSE, URINE NEGATIVE (Neg); KETONES,URINE TRACE mg/dl (Neg); LEUKOCYTE ESTERASE ,URINE NEGATIVE (Neg); NITRITES, URINE NEGATIVE (Neg); OCCULT BLOOD,URINE SMALL (Neg); PH,URINE 5.5 (4.8-8.0); PROTEIN,URINE 30 mg/dl (Neg); UROBILINOGEN,URINE 0.2 E.U/dL (0.2-1.0)
[2020-04-20 03:03] LABS: UA COLLECTION TYPE CLN CATCH MIDSTREAM
[2020-04-20 03:06] LABS: HYALINE CASTS 0-3 /LPF (NEGATIVE); MUCUS STRANDS FEW /LPF (Neg); SPERM FEW /HPF (NEGATIVE); SQUAMOUS EPITHELIAL CELL,UR FEW /LPF (FEW)
[2020-04-20 03:07] LABS: BACTERIA,URINE NONE SEEN /HPF (Neg); RBC,URINE 0-2 /HPF (0-2); WBC,URINE 0-4 /HPF (0-4)
[2020-04-20 03:38] VITALS: BP 126/84
== END 2020-04-20 03:40 | disposition home or self-care (01) ==
LOC: ER 23:59
DX: R41.82 Altered mental status, unspecified (principal); I10 Essential (primary) hypertension; J43.9 Emphysema, unspecified; J45.909 Unspecified asthma, uncomplicated; F12.90 Cannabis use, unspecified, uncomplicated; F15.90 Other stimulant use, unspecified, uncomplicated; Z86.73 Personal history of transient ischemic attack (TIA), and cerebral infarction without residual deficits; Z86.69 Personal history of other diseases of the nervous system and sense organs; Z79.899 Other long term (current) drug therapy
CPT/HCPCS: 36415; 71045; 80053; 81001; 83880; 84484; 85025; 93005; 99285